=== PATIENT | female | born 1965 | race Two or more races ===

== ENCOUNTER 2025-04-22 15:36 | Emergency (ER) | payer MEDICAID, OTHER ==
[~2025-04-22] VITALS: Ht 167.6 cm; Wt 114.1 kg
[2025-04-22] MEDS: KETOROLAC TROMETH 60MG/2ML VIAL IM ONE (17:43)
--- NOTE | 2025-04-22 17:49 | DVH ---
CLINICAL INDICATION: Cervical radiculopathy TECHNIQUE: 4 radiographic views of the cervical spine were obtained. Comparison: None FINDINGS/IMPRESSION: Bony spondylosis and degenerative disc changes are noted from C3 through C7 worse at C4-5 and 6.
--- NOTE | 2025-04-22 17:51 | ED.PDOC ---
Back pain HPI HPI Comments This patient is a severely morbidly obese 59 y.o female presents to the ED for a chief complaint of left upper back pain associated with neck and left shoulder pain x today. Patient was at the store today, reached over to get a product from a high shelf and some boxes fell onto her left shoulder, causing immediate pain. She denies any head trauma or deformities. No LOC. No blood loss. Patient was hypertensive on arrival. Chief Complaint: Back Pain Time Seen by MD: 17:30 Reviewed Notes: Nurses Notes, Medications, Allergies Allergies: Coded Allergies: NO KNOWN ALLERGIES (Unverified , 04/22/25) Home Meds Active Scripts Clonidine Hydrochloride (Clonidine Hcl) 0.2 Mg Tab, 1 TAB PO Q12HP PRN, #15 TAB 0 Refills To be used if systolic pressure is above 160 or diastolic pressure is above 90. Prov:LILI WARD [facility] 04/22/25 Acetaminophen (Acetaminophen) 500 Mg Tab, 500 MG PO Q4HP PRN, #30 TAB Prov:LILI WARD 04/22/25 Ibuprofen Micronized (Ibuprofen) 800 Mg Tab, 800 MG PO Q8HP PRN, #20 TAB Prov:LILI WARD [facility] 04/22/25 Information Source: Patient Mode of Arrival: Wheelchair Timing: Hours Duration: Since onset Location of Back pain: (L) Upper back Severity: Moderate Prehospital treatment: None Quality: Aching, Sharp Onset: Blunt Trauma Circumstance: Other (Shopping) History of: None Modifying Factors: Nothing Associated signs and symptoms: None Past Medical History PAST MEDICAL HISTORY: DM, HTN, Denies Surgical History: Denies all surgeries FISH HATCHERY MANAGER History: No Pertinent FISH HATCHERY MANAGER History Family History Family History: Reviewed,noncontributory to illness Social History Smoker: Non-Smoker Alcohol: Denies ETOH Use Drugs: Denies Drug Use Lives In: Home Constitutional: denies: chills, diaphoresis, fatigue, fever, malaise, sweats, weakness, others EENTM: denies: blurred vision, double vision, ear bleeding, ear discharge, ear drainage, ear pain, ear ringing, eye pain, eye redness, hearing loss, mouth pain, mouth swelling, nasal discharge, nose bleeding, nose congestion, nose pain, photophobia, tearing, throat pain, throat swelling, voice changes, others Respiratory: denies: cough, hemoptysis, orthopnea, SOB at rest, shortness of breath, SOB with excertion, stridor, wheezing, others Cardiovascular: denies: chest pain, dizzy spells, diaphoresis, Dyspnea on exert ion, edema, irregular heart beat, left arm pain, lightheadedness, palpitations, PND, syncope, others Gastrointestinal: denies: abdomen distended, abdominal pain, blood streaked bowels, constipated, diarrhea, dysphagia, difficulty swallowing, hematemesis, melena, nausea, poor appetite, poor fluid intake, rectal bleeding, rectal pain, vomiting, others Genitourinary: denies: abnormal vagina bleeding, burning, dyspareunia, dysuria, flank pain, frequency, hematuria, incontinence, pain, , vagina discharge, urgency, others Neurological: denies: dizziness, fainting, headache, left sided numbness, left sided weakness, numbness, paresthesia, pre-existing deficit, right sided numbness, right sided weakness, seizure, speech problems, tingling, tremors, weakness, others Musculoskeletal: reports: back pain, neck pain, others (Left shoulder and left arm pain, left knee pain); denies: gout, joint pain, joint swelling, muscle pain, muscle stiffness Integumetry: denies: bruises, change in color, change in hair/nails, dryness, laceration, lesions, lumps, rash, wounds, others Allergic/Immunocompromised: denies: Difficulty Healing, Frequent Infections, Hives, Itching, others Hematologic/Lymphatic: denies: anemia, blood clots, easy bleeding, easy bruising, swollen glands, others Endocrine: denies: excessive hunger, excessive sweating, excessive thirst, excessive urination, flushing, intolerance to cold, intolerance to heat, unexplained weight gain, unexplained weight loss, others Psychiatric: denies: anxiety, bipolar disorder, depression, hopeless, panic disorder, schizophrenia, sleepless, suicidal, others All Other Systems: Reviewed and Negative Physical Exam General Appearance: Moderate Distress ([id number] distress due to musculoskeletal pain concerns.), Normal HEENT: Normal ENT Inspection, Pharynx Normal, TMs Normal Neck: Other (Mild diffuse bilateral tenderness to palpation. No step-offs appreciated. Difficult to assess due to body habitus. Patient complains of neuropathic pain down bilateral arms.) Respiratory: Chest Non-Tender, Lungs Clear, No Accessory Muscle Use, No Respiratory Distress, Normal Breath Sounds Cardiovascular: No Edema, No JVD, No Murmur, No Gallop, Normal Peripheral Pulses, Regular Rate/Rhythm Breast Exam: Deferred Gastrointestinal: No Organomegaly, Non Tender, No Pulsatile Mass, Normal Bowel Sounds, Soft Genitalia: Deferred Pelvic: Deferred Rectal: Deferred Extremities: Other (Global physical exam from left upper back and left shoulder region through bilateral arms and left thigh and knee were unremarkable for any signs of trauma. No contusions noted. No crepitus noted. No significant reduced range of motion.) Neurologic: Alert Cerebellar Function: NOT DONE Reflexes: NOT DONE Skin: Dry, Normal Color, Warm Lymphatic: No Adenopathy Was a procedure done? Was a procedure done?: No Back Pain Differential Dx Differential Diagnosis: DJD, Musculoskeletal Pain, Strain, Other (Contusion, radiculopathy) X-Ray, Labs, Meds, VS Vital Signs Date Time Temp Pulse Resp B/P (MAP) Pulse Ox O2 Delivery O2 Flow Rate FiO2 04/22/25 19:35 98.3 68 20 132/85 (101) 94 98.3 04/22/25 17:43 213/121 04/22/25 17:36 97 Room Air* 0 21 04/22/25 17:36 82 04/22/25 15:38 98.5 90 18 178/107 95 98.5 Current Medications Medications (Trade) Dose Ordered Sig/Miguelangel Route Start Time Stop Time Status Last Admin Ketorolac Tromethamine (Toradol Injection) 30 mg ONCE ONCE IM 04/22/25 17:00 04/22/25 17:01 DC 04/22/25 17:43 Clonidine HCl (Catapres Tablet) 0.2 mg ONCE ONCE PO 04/22/25 17:45 04/22/25 17:46 DC 04/22/25 17:43 X-Ray, Labs, Meds, VS Comment All studies performed the ED were evaluated by me personally. Cervical spine series revealed some degenerative disc disease throughout. Patient appears to be suffering from some neuropathy related to that concern as well as contusions. Advised pain medication as needed as well as ice therapy. Additionally, patient is hypertensive concerns were reduced into an acceptable zone at time of discharge. Patient has been advised to follow up with the primary care provider for improved management of what is currently poorly controlled hypertension. Time of 1ST Reevaluation: 18:48 Reevaluation 1ST: Improved Consultation: PCP Patient Education/Counseling: Diagnosis, Treatment, Prognosis Family Education/Counseling: Diagnosis, Treatment, No Family Present SEPSIS Sepsis Screen Date sepsis recognized/suspect: Apr 22, 2025 Time Sepsis recognized/suspect: 1541 Recent Procedure: No On Antibiotic Therapy: No Respiratory Rate >20: No Heart Rate >90: No Temp<36 C (96.8 F) or >38.3 C: No SBP <90 or MAP <65 mmHG: No New Acute Mental Status Change: No Is the patient on CPAP, BIPAP,: No Physician Orders Cervical Spine 3v (04/22/25 16:56) Vital Signs Date Time Temp Pulse Resp B/P (MAP) Pulse Ox O2 Delivery O2 Flow Rate FiO2 04/22/25 19:35 98.3 68 20 132/85 (101) 94 98.3 04/22/25 17:43 213/121 04/22/25 17:36 97 Room Air* 0 21 04/22/25 17:36 82 04/22/25 15:38 98.5 90 18 178/107 95 98.5 Medications Medications Dose Ordered Sig/Miguelangel Route Start Time Stop Time Status Last Admin Dose Admin Clonidine HCl 0.2 mg ONCE ONCE PO 04/22/25 17:45 04/22/25 17:46 DC 04/22/25 17:43 Ketorolac Tromethamine 30 mg ONCE ONCE IM 04/22/25 17:00 04/22/25 17:01 DC 04/22/25 17:43 Departure 1 Departure Time of Disposition: 18:48 Impression: Primary Impression: Contusion Additional Impressions: Degenerative joint disease of cervical spine Cervical radiculopathy Hypertensive urgency Disposition: 01 HOME / SELF CARE / HOMELESS Condition: Stable Additional Instructions: Advised pain medication as needed and additionally, patient may want to follow up with the primary care provider for discussions related to the degenerative disc disease that was discovered today. Additionally, patient needs to have a conversation with the primary care provider about improved medication management of what is currently poorly controlled hypertension. e-Prescriptions Clonidine Hydrochloride (Clonidine Hcl) 0.2 Mg Tab 1 TAB PO Q12HP PRN, #15 TAB 0 Refills To be used if systolic pressure is above 160 or diastolic pressure is above 90. Prov: LILI WARD PAC 04/22/25 Acetaminophen (Acetaminophen) 500 Mg Tab 500 MG PO Q4HP PRN, #30 TAB Prov: LILI WARD PAC 04/22/25 Ibuprofen Micronized (Ibuprofen) 800 Mg Tab 800 MG PO Q8HP PRN, #20 TAB Prov: LILI WARD PAC 04/22/25 Discharged With: Self, Friend Critical Care Note Critical Care Time?: No Stability Stability form required: No I personally scribed for LILI WARD PAC ([email or web address]) on 04/22/25 at 17:51. Electronically submitted by Disha Valdez ([facility]). LILI WARD PAC Apr 22, 2025 17:51
[2025-04-22] MEDS ORDERED: ACET500T58 PO (18:51)
[2025-04-22] MEDS ORDERED: CLON0.2T PO (18:51)
[2025-04-22] MEDS ORDERED: IBUP-1455 PO (18:51)
[2025-04-22 19:35] VITALS: BP 132/85; PULSE 68; RESP 20; TEMP 98.3; O2SAT 94
== END 2025-04-22 20:11 | disposition home or self-care (01) ==
LOC: ER 15:41
DX: S40.012A Contusion of left shoulder, initial encounter (principal); M47.22 Other spondylosis with radiculopathy, cervical region; I16.0 Hypertensive urgency; I10 Essential (primary) hypertension; Z79.899 Other long term (current) drug therapy; W19.XXXA Unspecified fall, initial encounter; Y93.89 Activity, other specified; Y92.89 Other specified places as the place of occurrence of the external cause; Y99.8 Other external cause status
CPT/HCPCS: 72040; 96372; 99283; J1885